=== PATIENT | male | born 1980 | race American Indian/Alaskan Native ===

== ENCOUNTER 2017-12-09 01:12 | Emergency (ER) | payer OTHER ==
[2017-12-09 01:41] VITALS: BP 127/89; PULSE 99; RESP 20; TEMP 98.6; O2SAT 99
--- NOTE | 2017-12-09 01:48 | ED PDOC ---
Lower Extremity Pain/Injury Time Seen by Provider: 12/09/17 01:15 Chief Complaint (Nursing): Lower Extremity Problem/Injury Chief Complaint (Provider): left knee pain History Per: Patient History/Exam Limitations: no limitations Onset/Duration Of Symptoms: Hrs (1) Current Symptoms Are (Timing): Still Present Additional Complaint(s): 37 y/o male brought in by EMS for evaluation of left knee pain sustained prior to arrival. 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 Patient notes pain to outer aspect of left knee, worse with weight bearing and bending. Denies numbness/weakness left lower extremity, limitation of movement. Past Medical History Reviewed: Historical Data, Nursing Documentation, Vital Signs Vital Signs: Last Vital Signs Temp 98.6 F 12/09/17 01:19 Pulse 99 H 12/09/17 01:19 Resp 20 12/09/17 01:19 BP 127/89 12/09/17 01:19 Pulse Ox 99 12/09/17 01:19 - Medical History PMH: No Chronic Diseases - Surgical History Surgical History: No Surg Hx - Family History Family History: States: No Known Family Hx - Living Arrangements Living Arrangements: With Family - Home Medications Home Medications: Ambulatory Orders Medication Instructions Recorded Naproxen [Naprosyn] 500 mg PO Q12 PRN #20 tablet 12/09/17 - Allergies Allergies/Adverse Reactions: Allergies Allergy/AdvReac Type Severity Reaction Status Date / Time No Known Allergies Allergy Verified 12/09/17 01:38 Review of Systems ROS Statement: Except As Marked, All Systems Reviewed And Found Negative Musculoskeletal: Positive for: Leg Pain (left knee) Physical Exam - Reviewed Nursing Documentation Reviewed: Yes Vital Signs Reviewed: Yes - Physical Exam Appears: Positive for: Well, Non-toxic, No Acute Distress Head Exam: Positive for: ATRAUMATIC, NORMAL INSPECTION, NORMOCEPHALIC Skin: Positive for: Normal Color Pulses-Dorsalis Pedis (L): 2+ Pulses-Dorsalis Pedis (R): 2+ Pulses-Post. Tibialis (L): 2+ Pulses-Post. Tibialis (R): 2+ Extremity: Positive for: Normal ROM, Tenderness (left lateral knee, proximal tibia; no obvious swelling, bony deformity noted), Capillary Refill (<2 sec b/l LE). Negative for: Pedal Edema, Deformity, Swelling Neurologic/Psych: Positive for: Alert, Oriented. Negative for: Motor/Sensory Deficits - ECG O2 Sat by Pulse Oximetry: 99 - Progress ED Course And Treament: xray, ibuprofen, ice applications Patient educated on findings, placed in knee immobilizer. Crutches given with instructions on light weight bearing. Advised RICE. Rx Naproxen provided. Follow up ortho Return precautions given. Disposition - Clinical Impression Clinical Impression: Left knee injury - Patient ED Disposition Is Patient to be Admitted: No Counseled Patient/Family Regarding: Studies Performed, Diagnosis, Need For Followup, Rx Given - Disposition Referrals: Ez Eddy III, MD [Staff Provider] - Disposition: Routine/Home Disposition Time: 02:34 Condition: IMPROVED Prescriptions: Naproxen [Naprosyn] 500 mg PO Q12 PRN #20 tablet PRN Reason: Pain, Moderate (4-7) Instructions: Knee Sprain (DC), Knee Pain Forms: [facility] ([place]), [facility] ED School/Work Excuse
--- NOTE | 2017-12-09 08:13 | RAD ---
PROCEDURE: Left Knee Radiographs. HISTORY: Pain. COMPARISON: None. FINDINGS: BONES: Normal. No fracture. JOINTS: Normal. No osteoarthritis. JOINT EFFUSION: Present OTHER FINDINGS: None. IMPRESSION: Joint effusion. No fracture
== END 2017-12-09 02:45 | disposition home or self-care (01) ==
LOC: H.ER 01:12
DX: S89.92XA Unspecified injury of left lower leg, initial encounter (principal); W01.0XXA Fall on same level from slipping, tripping and stumbling without subsequent striking against object, initial encounter; Y99.0 Civilian activity done for income or pay